=== PATIENT | female | born 1970 | race Caucasian/White ===

== ENCOUNTER 2017-05-30 12:22 | Emergency (ER) | payer SELFPAY ==
[~2017-05-30] VITALS: Ht 152.4 cm; Wt 57.0 kg
[2017-05-30 12:26] VITALS: Ht 152.4 cm; Wt 57.0 kg
[2017-05-30] MEDS ORDERED: HYDR25SU23 PR (12:45)
[2017-05-30] MEDS ORDERED: DOCU-144 PO (12:45)
--- NOTE | 2017-05-30 12:48 | ERD ---
ER Documentation Chief Complaint Date/Time DATE: 05/30/17 TIME: 12:46 Chief Complaint abscess @ buttocks area HPI This patient is a 47-year-old female who presents with rectal pain that began yesterday. She thinks she has hemorrhoids. She has had this before and they usually resolve on her own. Pain is 8 out of 10 and worse with sitting or with bowel movements. She denies any difficulty with bowel movements or constipation or diarrhea. No nausea or vomiting. No abdominal pain. No trauma. No blood in her stool. ROS All systems reviewed and are negative except as per history of present illness. Medications Home Meds Active Scripts Docusate Sodium* (Colace*) 100 Mg Capsule, 100 MG PO TID, #30 CAP Prov:JAYSON TALLEY PA-C 05/30/17 Hydrocortisone Acetate (Anusol-Hc) 25 Mg Supp.rect, 1 SUPP MS BID Y for HEMORROID PAIN/ITCHING, #12 SUPP.RECT Prov:JAYSON TALLEY PA-C 05/30/17 Allergies Allergies: Coded Allergies: Penicillins (Verified Allergy, Mild, 05/30/17) RASH, N/V PMhx/Soc History of Surgery: No Anesthesia Reaction: No Hx Neurological Disorder: No Hx Respiratory Disorders: No Hx Cardiac Disorders: No Hx Psychiatric Problems: No Hx Miscellaneous Medical Probl: Yes (BELLS PALSY, ANXIETY) Hx Alcohol Use: No Hx Substance Use: No Hx Tobacco Use: No Smoking Status: Never smoker FmHx Family History: No diabetes Physical Exam Vitals Vital Signs Date Time Temp Pulse Resp B/P Pulse Ox O2 Delivery O2 Flow Rate FiO2 05/30/17 12:26 98.5 89 19 128/68 99 Physical Exam General: well developed, well nourished, alert, nontoxic, no distress Head: normocephalic, atraumatic Neck: Supple, nontender, no lymphadenopathy, no midline tenderness Respiratory: Clear to auscaultation bilaterally, speaks in full sentences, no use of accesory muscles or labored breathing, no rales, ronchi, or wheezing Cardiovascular: RRR, No murmurs GI: soft, non tender, non distended, negative murphys sign, negative mcburneys point tenderness, no cva tenderness bilaterally, no rebound or guarding rectal: Performed with RN Christina, multiple nonthrombosed hemorrhoids, no active bleeding Procedures/MDM 39-year-old female presents with hemorrhoids. There nonthrombosed. She has had these before and they typically resolve on their own. There is no active bleeding. She was discharged with Colace and Anusol suppositories. Recommended this patient follow up with her primary care doctor within 48 hours or return to the emergency room for any worsening of symptoms. However this time I do believe there is suitable for outpatient management. I answered all their questions and they agreed with the plan and were discharged home. Departure Diagnosis: Primary Impression: External hemorrhoid Condition: Stable Patient Instructions: Treating Hemorrhoids: Self-Care, Understanding Hemorrhoids, Hemorrhoids Additional Instructions: Llame al doctor MAANA y edith mercedez CECILIA PARA DENTRO DE 1-2 LARA.Dgale a la secretaria que nosotros le instruimos hacer esta cecilia.Avise o llame si peterson condicin se empeora antes de la cecilia. Regresa aqui si peor o no mejor. JAYSON TALLEY PA-C May 30, 2017 12:48
== END 2017-05-30 12:54 | disposition home or self-care (01) ==
LOC: FTE 12:22
DX: K64.4 Residual hemorrhoidal skin tags (principal)
CPT/HCPCS: 99284